=== PATIENT | female | born 1990 | race Caucasian/White ===

== ENCOUNTER → 2016-11-24 13:43 | Outpatient (CLI) | payer SELFPAY | END | disposition home or self-care (01) | LOC: D.US 11-22 10:00 | DX: N64.4 Mastodynia (principal) ==

== ENCOUNTER → 2019-09-30 10:52 | Outpatient (CLI) | payer BC | END | disposition home or self-care (01) | LOC: D.CT 10:52 | PROVIDERS: ATTEND Family Medicine | DX: R10.30 Lower abdominal pain, unspecified (principal); R10.10 Upper abdominal pain, unspecified ==